=== PATIENT | male | born 2000 | race African-American/Black ===

== ENCOUNTER 2022-08-10 20:29 | Emergency (ER) | payer OTHER ==
[2022-08-10 20:41] VITALS: BP 139/70; PULSE 90; RESP 18; TEMP 98.9; BMI 41.5
[2022-08-10] MEDS ORDERED: MAG HYDROX/AL HYDROX/SIMETH 30 ML UNIT-DOSE CUP PO ONE (21:16)
[2022-08-10] MEDS ORDERED: MAG HYDROX/AL HYDROX/SIMETH 30 ML UNIT-DOSE CUP ONE (21:16)
[2022-08-10] MEDS ORDERED: FAMOTIDINE 20 MG TABLET ONE (21:16)
[2022-08-10] MEDS ORDERED: FAMOTIDINE 10 MG TABLET PO ONE (21:16)
[2022-08-10] MEDS ORDERED: FAMOTIDINE 20 MG TABLET PO ONE (21:19)
== END 2022-08-10 22:19 | disposition home or self-care (01) ==
LOC: FER 20:29
DX: K29.00 Acute gastritis without bleeding (principal); R10.13 Epigastric pain
CPT/HCPCS: 99283-25